=== PATIENT | male | born 1975 | race Caucasian/White ===

== ENCOUNTER 2021-01-02 17:37 | Emergency (ER) | payer OTHER ==
[2021-01-02] MEDS ORDERED: Aspirin 81 MG Tab.Chew PO ONE (18:48)
--- NOTE | 2021-01-02 19:02 | EDM.PDOC ---
ED HPI GENERAL MEDICAL PROBLEM - General Chief Complaint: Chest Pain Stated Complaint: CHEST PAIN STARTED 30 MINS AGO Time Seen by Provider: 01/02/21 18:57 Source of Information: Reports: Patient History Limitations: Reports: No Limitations - History of Present Illness INITIAL COMMENTS - FREE TEXT/NARRATIVE: pt was at the gym working out doing mainly lower body exercises.He developed chest pain on the left side and he rated it a 9. He was sweaty but he had been exercising. He did feel sob. he has not had leg tenderness He has felt well until today. He does hurt some on deep breathing. He is still uncomfortable but his pain is down to a 5-6/ Onset: Today, Sudden Duration: Minutes:, Improving Location: Reports: Chest, Other (pain is over the left chest. It diod go to his neck but not down his arm. ) Quality: Reports: Pressure, Other ( sharp in nature. ) Associated Symptoms: Reports: Shortness of Breath Left Chest Pain Score (Numeric/FACES): 6 - Related Data Allergies Allergy/AdvReac Type Severity Reaction Status Date / Time amoxicillin [Amoxicillin] Allergy Severe Rash Verified 01/02/21 18:06 clindamycin Allergy Mild Rash Verified 01/02/21 18:06 Home Meds: Home Meds Albuterol Sulfate [Proair Hfa] 8.5 gm IH Q4H PRN 01/03/13 [History] FLUoxetine HCl [Fluoxetine HCl] 20 mg PO DAILY 01/03/13 [History] Cyclobenzaprine [Flexeril] 10 mg PO TID PRN 01/05/16 [History] Hydrocortisone Acetate [Anusol-Hc] 25 mg RC BID 01/05/16 [History] Sildenafil Citrate [Sildenafil] 20 mg PO DAILY PRN 01/05/16 [History] Metoprolol Succinate [Toprol XL] 25 mg PO DAILY 01/07/16 [History] Past Medical History Cardiovascular History: Reports: Hypertension Respiratory History: Reports: Asthma Musculoskeletal History: Reports: Fracture Neurological History: Reports: Concussion Psychiatric History: Reports: Anxiety - Past Surgical History HEENT Surgical History: Reports: Oral Surgery Social & Family History - Tobacco Use Tobacco Use Status *Q: Never Tobacco User - Caffeine Use Caffeine Use: Reports: Other Other Caffeine Use: pre-workout - Recreational Drug Use Recreational Drug Use: No ED ROS GENERAL - Review of Systems Review Of Systems: See Below Constitutional: Reports: No Symptoms HEENT: Reports: No Symptoms Respiratory: Reports: Shortness of Breath, Pleuritic Chest Pain Cardiovascular: Reports: No Symptoms Endocrine: Reports: No Symptoms GI/Abdominal: Reports: No Symptoms : Reports: No Symptoms Musculoskeletal: Reports: Other (pt does not feel he is having muscle pain) Skin: Reports: No Symptoms Neurological: Reports: No Symptoms Psychiatric: Reports: No Symptoms ED EXAM, GENERAL - Physical Exam Exam: See Below Free Text/Narrative:: pt arrived with left sided chest pain. He was mildly sob. He had some pain in the left shoulder. He was working out at the gym. Exam Limited By: No Limitations General Appearance: Alert, Anxious Ears: Normal TMs Nose: Normal Inspection Throat/Mouth: Normal Inspection Head: Atraumatic Neck: Other (muscle spasm and tenderness in the muscle area above the scapula) Respiratory/Chest: No Respiratory Distress Cardiovascular: Regular Rate, Rhythm, Other (no chest wall tenderness) GI/Abdominal: Soft, Non-Tender (Male) Exam: Deferred Rectal (Males) Exam: Deferred Back Exam: Normal Inspection, Other (pt has muscle spasm and tenderness above the left scapula) Extremities: Normal Inspection Neurological: Alert, Oriented, Normal Cognition Psychiatric: Anxious Course - Vital Signs Last Recorded V/S: Last Vital Signs Temp 35.7 C L 01/02/21 18:05 Pulse 68 01/02/21 19:13 Resp 13 01/02/21 19:13 BP 139/92 H 01/02/21 19:13 Pulse Ox 94 L 01/02/21 19:13 - Orders/Labs/Meds Orders: Active Orders 24 hr Category Date Time Status Cardiac Monitoring [RC] .As Directed Care 01/02/21 17:38 Active Nitroglycerin [Nitrostat] Med 01/02/21 19:25 Active 0.4 mg SL Q5M PRN EKG 12 Lead [EK] Routine Ther 01/02/21 17:38 Ordered EKG 12 Lead [EK] Routine Ther 01/02/21 18:47 Stop Req Medication Orders Nitroglycerin (Nitroglycerin 0.4 Mg Tab.Sl) 0.4 mg SL Q5M PRN PRN Reason: Chest Pain Labs: Laboratory Tests 01/02/21 01/02/21 01/02/21 Range/Units 18:56 18:56 18:57 WBC (4.5-11.0) K/uL RBC (4.30-5.90) M/uL Hgb (12.0-15.0) g/dL Hct (40.0-54.0) % MCV (80-98) fL MCH (27-31) pg MCHC (32-36) % Plt Count (150-400) K/uL Neut % (Auto) (36-66) % Lymph % (Auto) (24-44) % [place] % (Auto) (2-6) % Eos % (Auto) (2-4) % Baso % (Auto) (0-1) % D-Dimer, Quantitative 251.18 (0.0-500.0) ng/mL Sodium (140-148) mmol/L Potassium (3.6-5.2) mmol/L Chloride (100-108) mmol/L Carbon Dioxide (21-32) mmol/L Anion Gap (5.0-14.0) mmol/L BUN (7-18) mg/dL Creatinine (0.8-1.3) mg/dL Est Cr Clr Drug Dosing mL/min Estimated GFR (MDRD) (>60) Glucose (74-106) mg/dL Calcium (8.5-10.1) mg/dL Total Bilirubin (0.2-1.0) mg/dL AST (15-37) U/L ALT (12-78) U/L Alkaline Phosphatase (46-116) U/L Troponin I < 0.017 (0.000-0.056) ng/mL C-Reactive Protein < 0.05 (0.0-0.3) mg/dL Total Protein (6.4-8.2) g/dL Albumin (3.4-5.0) g/dL Globulin (2.3-3.5) g/dL Albumin/Globulin Ratio (1.2-2.2) 01/02/21 01/02/21 Range/Units 18:57 18:57 WBC 8.0 (4.5-11.0) K/uL RBC 5.05 (4.30-5.90) M/uL Hgb 15.0 (12.0-15.0) g/dL Hct 44.5 (40.0-54.0) % MCV 88 (80-98) fL MCH 30 (27-31) pg MCHC 34 (32-36) % Plt Count 243 (150-400) K/uL Neut % (Auto) 59.7 (36-66) % Lymph % (Auto) 30.5 (24-44) % [place] % (Auto) 8.4 H (2-6) % Eos % (Auto) 0.9 L (2-4) % Baso % (Auto) 0.5 (0-1) % D-Dimer, Quantitative (0.0-500.0) ng/mL Sodium 141 (140-148) mmol/L Potassium 4.5 (3.6-5.2) mmol/L Chloride 104 (100-108) mmol/L Carbon Dioxide 29 (21-32) mmol/L Anion Gap 8.5 (5.0-14.0) mmol/L BUN 16 (7-18) mg/dL Creatinine 1.2 (0.8-1.3) mg/dL Est Cr Clr Drug Dosing 81.92 mL/min Estimated GFR (MDRD) > 60 (>60) Glucose 90 (74-106) mg/dL Calcium 9.0 (8.5-10.1) mg/dL Total Bilirubin 0.4 (0.2-1.0) mg/dL AST 24 (15-37) U/L ALT 51 (12-78) U/L Alkaline Phosphatase 69 (46-116) U/L Troponin I (0.000-0.056) ng/mL C-Reactive Protein (0.0-0.3) mg/dL Total Protein 7.1 (6.4-8.2) g/dL Albumin 4.2 (3.4-5.0) g/dL Globulin 2.9 (2.3-3.5) g/dL Albumin/Globulin Ratio 1.4 (1.2-2.2) Meds: Medications Generic Name Dose Route Start Last Admin Trade Name Freq PRN Reason Stop Dose Admin Nitroglycerin 0.4 mg 01/02/21 19:25 Nitroglycerin 0.4 Mg Tab.Sl SL Q5M PRN Chest Pain Discontinued Medications Generic Name Dose Route Start Last Admin Trade Name Freq PRN Reason Stop Dose Admin Aspirin 324 mg 01/02/21 18:48 01/02/21 19:13 Aspirin 81 Mg Tab.Chew PO 01/02/21 18:49 324 mg ONETIME ONE Administration Ketorolac Tromethamine 60 mg 01/02/21 19:57 01/02/21 20:04 Ketorolac 30 Mg/Ml Sdv IM 01/02/21 19:58 60 mg ONETIME ONE Administration - Re-Assessments/Exams Free Text/Narrative Re-Assessment/Exam: 01/02/21 20:00 pt had a normal trop. His chest pain is getting better but he is tight in the left shoulder area. He was doing leg workout at the gym today and I am feeling that he could have pulled a muscle. His ddimer was normal. His crp was normal. His chest xray showed a very small pleural effusion. He was given totdol 60mg im. Departure - Departure Time of Disposition: 20:44 Disposition: Home, Self-Care 01 Condition: Fair Clinical Impression: Chest wall pain, Muscle spasm of back Referrals: PCP,None [Primary Care Provider] - Forms: ED Department Discharge Care Plan Goals: tylenol and motrin for pain, moist watrm heat. rtc if pattern should change. Sepsis Event Note (ED) - Evaluation Sepsis Screening Result: No Definite Risk - Focused Exam Vital Signs: Vital Signs Temp Pulse Resp BP Pulse Ox 01/02/21 19:13 68 13 139/92 H 94 L 01/02/21 19:06 72 14 141/83 H 96 01/02/21 18:31 78 13 149/98 H 97 01/02/21 18:05 35.7 C L 80 13 154/95 H 97 01/02/21 17:54 35.7 C L 80 13 154/95 H 97 - My Orders Last 24 Hours: My Active Orders 01/02/21 18:47 EKG 12 Lead [EK] Routine 01/02/21 19:25 Nitroglycerin [Nitrostat] 0.4 mg SL Q5M PRN - Assessment/Plan Last 24 Hours: My Active Orders 01/02/21 18:47 EKG 12 Lead [EK] Routine 01/02/21 19:25 Nitroglycerin [Nitrostat] 0.4 mg SL Q5M PRN
[2021-01-02 19:14] VITALS: BP 139/92; PULSE 68
[2021-01-02] MEDS ORDERED: Nitroglycerin 0.4 MG Tab.SL SL PRN (19:25)
--- NOTE | 2021-01-02 19:28 | CRLCR ---
For Patients: As a result of the Century Cures Act, medical imaging exams and procedure reports are released immediately into your electronic medical record. You may view this report before your referring provider. If you have questions, please contact your health care provider. INDICATION: Shortness of breath. TECHNIQUE: Chest 1 view. COMPARISON: None. FINDINGS: Small left pleural effusion and left basilar atelectasis. No pneumothorax. Normal heart size and pulmonary vascularity. The bones are unremarkable. IMPRESSION: Small left pleural effusion. Dictated by Kate Prasad MD @ 01/02/2021 7:26:52 PM (Electronically Signed)
[2021-01-02] MEDS ORDERED: Ketorolac 30 MG/ML SDV IM ONE (19:57)
== END 2021-01-02 20:53 | disposition home or self-care (01) ==
LOC: JP.ED 17:37
DX: R07.89 Other chest pain (principal); M62.830 Muscle spasm of back; I10 Essential (primary) hypertension; J45.909 Unspecified asthma, uncomplicated; Z79.899 Other long term (current) drug therapy; Z88.0 Allergy status to penicillin; Z88.1 Allergy status to other antibiotic agents
CPT/HCPCS: 36415; 71045; 80053; 84484; 85025; 85379; 86140; 93005; 96372; 99285; A9270; J1885